=== PATIENT | male | born 1970 | race Caucasian/White ===

== ENCOUNTER 2019-12-07 16:20 | Emergency (ER) | payer BC ==
[~2019-12-07] VITALS: Ht 180.3 cm; Wt 144.5 kg
[2019-12-07 16:45] VITALS: BP 156/88; TEMP 98.6
[2019-12-07 17:15] VITALS: PULSE 110
[2019-12-07] MEDS ORDERED: ATARAX 25MG25 MG/TAB PO (17:16)
== END 2019-12-07 17:35 | disposition home or self-care (01) ==
LOC: COL.ER 16:20
DX: F41.0 Panic disorder [episodic paroxysmal anxiety] (principal)